=== PATIENT | female | born 1970 | race Caucasian/White ===

== ENCOUNTER 2020-02-01 10:20 | Outpatient (REF) | payer MEDICAID, SELFPAY | END 2020-02-01 10:21 | disposition home or self-care (01) | LOC: HO.LAB 10:20 | PROVIDERS: Visit Provider Internal Medicine | DX: Z20.828 Contact with and (suspected) exposure to other viral communicable diseases (principal) | CPT/HCPCS: C9803; U0003 ==

== ENCOUNTER 2020-02-13 15:25 | Outpatient (REF) | payer MEDICAID, SELFPAY | END 2020-02-13 15:26 | disposition home or self-care (01) | LOC: HO.LAB 15:25 | PROVIDERS: PCP Internal Medicine; Visit Provider Internal Medicine | DX: Z20.828 Contact with and (suspected) exposure to other viral communicable diseases (principal) | CPT/HCPCS: C9803; U0003 ==

== ENCOUNTER 2020-10-25 13:22 | Outpatient (REF) | payer MEDICAID, SELFPAY ==
[2020-10-25 14:49] LABS: COVID-19 Test Negative (Negative); IDNOW Serial# 08D9AD1C
== END 2020-10-25 13:23 | disposition home or self-care (01) ==
LOC: HO.LAB 13:22
PROVIDERS: PCP Internal Medicine; Visit Provider Internal Medicine
DX: Z20.822 Contact with and (suspected) exposure to COVID-19 (principal)
CPT/HCPCS: 36415; 87635; C9803

== ENCOUNTER 2021-03-05 10:22 | Outpatient (REF) | payer MEDICAID, SELFPAY | END 2021-03-05 10:23 | disposition home or self-care (01) | LOC: HO.HMGCLDS 10:22 | PROVIDERS: Visit Provider Internal Medicine | DX: Z20.822 Contact with and (suspected) exposure to COVID-19 (principal) | CPT/HCPCS: C9803; U0003; U0005 ==

== ENCOUNTER 2021-11-01 11:08 | Emergency (ER) | payer OTHER, MEDICAID, SELFPAY ==
[2021-11-01 11:18] VITALS: BP 146/72; PULSE 67; RESP 18; TEMP 35.9; O2SAT 98; BMI 40.7
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
[2021-11-01] MEDS: Acetaminophen 325 MG TABLET 975 MG PO (13:59)
== END 2021-11-01 14:16 | disposition home or self-care (01) ==
PROVIDERS: Emergency Provider Emergency Medicine; PCP Internal Medicine
DX: R51.9 Headache, unspecified (principal); M54.2 Cervicalgia; R42 Dizziness and giddiness
CPT/HCPCS: 99283

== ENCOUNTER 2022-01-28 19:10 | Emergency (ER) | payer MEDICAID, SELFPAY ==
[2022-01-28 19:50] VITALS: BP 148/82; PULSE 103; RESP 16; TEMP 37; O2SAT 96; BMI 40.4
--- NOTE | 2022-01-28 19:59 | ED.URI ---
HPI - URI/Sore Throat General Chief Complaint: Upper Respiratory Symptoms Stated Complaint: Abnormal labs Source: patient Mode of arrival: ambulatory History of Present Illness HPI Narrative: 51-year-old female without significant past medical history presents with complaints of sore throat, fever, chills, nausea as well as several episodes of nonbloody diarrhea since Thursday. She did go and see her primary care provider which did lab work, chest x-ray as well as viral testing and patient was noted be flu positive. Patient has taken Lomotil today to help slow down her diarrhea, however her primary care provider instructed her to be evaluated at the emergency room. She denies any vomiting and is able to keep both water and solids down. Related Data Previous Rx's Medication Instructions Recorded acetaminophen 500 mg tablet 1,000 mg PO QID PRN pain #30 tabs 11/01/21 Allergies Allergy/AdvReac Type Severity Reaction Status Date / Time latex [LATEX] Allergy Intermediate RASH Verified 01/28/22 19:54 Review of Systems Review of Systems: Pertinent positives and negatives as stated in HPI 10 point review of systems is otherwise negative. PMFSH Past Medical History Source: nursing notes reviewed Physical Exam Vital Signs: Vital Signs: Last Vital Signs Temp 98.6 F 01/28/22 19:50 Pulse 103 H 01/28/22 19:50 Resp 16 01/28/22 19:50 BP 148/82 H 01/28/22 19:50 Pulse Ox 96 01/28/22 19:50 O2 Del Method 01/28/22 19:50 BMI result Body Mass Index 40.4 VITAL SIGNS: Reviewed. GENERAL: Well developed, well nourished, in no acute distress. HEAD: Normocephalic/atraumatic EYES: PERRLA, EOMI EARS: Ext canals without abnormality, TMs non-bulging and non-erythematous NOSE: Nares patent bilateral OROPHARYNX: no oral lesions noted, posterior pharynx clear and erythematous without noted tonsillar enlargement/erythema/exudates NECK: Supple, no adenopathy LUNGS: Normal breath sounds. No adventitious sounds or accessory muscle use. SpO2<96> CARDIOVASCULAR: Regular rate and rhythm without noted murmurs ABDOMEN: Soft, non-tender, non-distended with bowel sounds. MUSCULOSKELETAL: No tenderness, deformities, or effusions noted on gross inspection. EXTREMITIES: No cyanosis, clubbing or edema. SKIN: Inspection of the skin reveals no rashes NEUROLOGIC: Alert and oriented x 4. Strength and sensation to light touch were grossly intact x 4. Course Course Course Narrative: 51-year-old female with history and clinical presentation consistent with viral syndrome and is known to have influenza positive. Patient is otherwise hemodynamically stable and will benefit from being discharged back to home and understands that her goals are to adjust her diet to firm up her stools and use [id number] medications if necessary such as Lomotil. In addition, patient knows that she should be take Tylenol/ibuprofen as needed for body aches and remaining symptoms. Discharge Plan Discharge Clinical Impression: Viral syndrome, Influenza Patient Disposition: Home, Self-Care Instructions: Viral Syndrome (ED), Influenza (ED), Nutrition Tips for Relief of Diarrhea (ED) Additional Instructions: 1. Recommend increasing water intake and please review the dietary recommendations for resolving diarrhea. 2. Recommend [id number] Tylenol/ibuprofen as needed for body aches, temperatures greater than 100.4. Return to the ER for worsening symptoms. Prescriptions: No Action acetaminophen 500 mg tablet 1,000 mg PO QID PRN (Reason: pain) Qty: 30 0RF Referrals: Sheridan Hernandez MD [Primary Care Provider] - Stand Alone Forms: Work/School Release
== END 2022-01-28 20:46 | disposition home or self-care (01) ==
PROVIDERS: Emergency Provider Student in an Organized Health Care Education/Training Program; PCP Internal Medicine
DX: J10.1 Influenza due to other identified influenza virus with other respiratory manifestations (principal); B34.9 Viral infection, unspecified; R50.9 Fever, unspecified
CPT/HCPCS: 99282; 99283

== ENCOUNTER 2022-02-03 12:54 | Emergency (ER) | payer MEDICAID, SELFPAY ==
--- NOTE | ~2022-02-03 | XR_ITS ---
EXAMINATION: XR CHEST CLINICAL INFORMATION: Cough for one week COMPARISON: Previous chest x-ray most recent from 2018 TECHNIQUE: 2 views of the chest were obtained. FINDINGS: No significant abnormality is noted involving the heart, lungs, mediastinum, bony thorax or soft tissues. XR/XR chest 2V IMPRESSION: Unremarkable examination.
[2022-02-03 13:11] VITALS: BP 154/71; PULSE 74; RESP 18; TEMP 36.2; O2SAT 98; BMI 40.4
--- NOTE | 2022-02-03 13:18 | ED.GENADULT ---
HPI - General Adult General Chief complaint: General Medical <Sabrina Burnett MD - Last Filed: 02/03/22 13:22> Stated complaint: sob <Sabrina Burnett MD - Last Filed: 02/03/22 13:22> Time Seen by Provider: 02/03/22 15:09 <Sabrina Burnett MD - Last Filed: 02/03/22 13:22> Source: patient <CECILIA Woods - Last Filed: 02/03/22 18:36> Mode of arrival: ambulatory <CECILIA Woods - Last Filed: 02/03/22 18:36> History of Present Illness HPI narrative: 51-year-old female w/PMHx Influenza A on 01/28 presenting to ED sent in by PCP for dehydration noted on outpatient labs. Patient was seen in the ED on 01/28 in discharged with symptomatic treatment, without improvement. Reports continued dry cough, chest discomfort with cough, mild SOB, sore throat, fatigue and diarrhea since influenza diagnosis. Reports p.o. intake WNL. Denies ear pain, difficulty swallowing, abdominal pain, nausea, vomiting <CECILIA Woods - Last Filed: 02/03/22 18:36> Onset (ago): day(s) <CECILIA Woods - Last Filed: 02/03/22 18:36> Related Data Home medications: Previous Rx's Medication Instructions Recorded acetaminophen 500 mg tablet 1,000 mg PO QID PRN pain #30 tabs 11/01/21 azithromycin 250 mg tablet See Rx Instructions PO .COMPLEX #6 02/03/22 tabs benzonatate 100 mg capsule 100 mg PO TID PRN cough #14 caps 02/03/22 fluticasone propionate 50 2 spray intranasal DAILY #16 grams 02/03/22 mcg/actuation nasal spray,suspension (Flonase Allergy Relief) <Sabrina Burnett MD - Last Filed: 02/03/22 13:22> Allergies/adverse reactions: Allergies Allergy/AdvReac Type Severity Reaction Status Date / Time latex [LATEX] Allergy Intermediate RASH Verified 02/03/22 13:18 <Sabrina Burnett MD - Last Filed: 02/03/22 13:22> Review of Systems Review of Systems: Constitutional: No Fever, + Chills ENT/Mouth: No Ear Pain, No Nasal Congestion, No Sinus Pain, No Hoarseness, + sore throat, + Rhinorrhea, No Swallowing Difficulty Cardiovascular: + Chest Pain when coughing, + SOB Respiratory: + Cough, No Sputum, No Wheezing Gastrointestinal: No Nausea, No Vomiting, No Diarrhea, No Constipation, No Abdominal pain Genitourinary: No Dysuria, No Urinary Frequency, No Hematuria, No Urgency, No Flank Pain Musculoskeletal: No joint pain, No Myalgias, No Joint Swelling Skin: No Skin Lesions, No rash Neuro: No Weakness, No Numbness, No Paresthesias <CECILIA Woods - Last Filed: 02/03/22 18:36> Yes all other systems are reviewed and are negative <CECILIA Woods - Last Filed: 02/03/22 18:36> Constitutional: Constitutional: Reports as per HPI <CECILIA Woods - Last Filed: 02/03/22 18:36> [facility] Past Medical History Attestation statement: The following information was validated with the patient. <CECILIA oWods - Last Filed: 02/03/22 18:36> Social History Social History: Social History Smoked in Last 30 Days: No Use of substances other than those prescribed or required for medical reasons: No Advance Directives: No Advance Directives Information Provided: Yes <Sabrina Burnett MD - Last Filed: 02/03/22 13:22> Physical Exam ED Vital Signs: Vital Signs - 24 hr 02/03/22 13:11 02/03/22 14:49 02/03/22 16:40 Temperature 97.1 F 98.5 F 98.1 F Pulse Rate 74 64 88 Respiratory Rate 18 12 18 Blood Pressure 154/71 H 115/60 131/62 Pulse Oximetry 98 96 96 Oxygen Delivery Method Room Air Room Air Room Air BMI result Body Mass Index 40.4 <Sabrina Burnett MD - Last Filed: 02/03/22 13:22> Vital Signs - 24 hr 02/03/22 13:11 02/03/22 14:49 02/03/22 16:40 Temperature 97.1 F 98.5 F 98.1 F Pulse Rate 74 64 88 Respiratory Rate 18 12 18 Blood Pressure 154/71 H 115/60 131/62 Pulse Oximetry 98 96 96 Oxygen Delivery Method Room Air Room Air Room Air BMI result Body Mass Index 40.4 <CECILIA Woods Last Filed: 02/03/22 18:36> Const General: cooperative, healthy appearing and no acute distress <CECILIA Woods Last Filed: 02/03/22 18:36> Orientation/consciousness: patient oriented x3 <CECILIA Woods Last Filed: 02/03/22 18:36> Limitations: no limitations <CECILIA Woods - Last Filed: 02/03/22 18:36> HENMT Head: Yes normal to inspection and Yes atraumatic <CECILIA Woods Last Filed: 02/03/22 18:36> Ears: hearing grossly normal bilaterally, external ears normal and TM's normal bilaterally <CECILIA Woods Last Filed: 02/03/22 18:36> General nose exam: Normal external nose present <CECILIA Woods Last Filed: 02/03/22 18:36> Face and sinus: Yes normal facial exam <CECILIA Woods Last Filed: 02/03/22 18:36> Throat: Yes posterior oropharynx normal, Yes tonsils normal, Yes uvula midline, No uvula laterally displaced and No uvular edema <CECILIA Woods Last Filed: 02/03/22 18:36> Eyes General: appearance normal, both eyes and all related structures <CECILIA Woods Last Filed: 02/03/22 18:36> EOM: EOMs intact bilaterally <CECILIA Woods - Last Filed: 02/03/22 18:36> Neck Neck: Yes normal visual inspection and Yes no meningeal signs <CECILIA Woods Last Filed: 02/03/22 18:36> Resp Effort & Inspection: normal respiratory effort, no respiratory distress and no stridor <CECILIA Woods Last Filed: 02/03/22 18:36> Auscultation: clear to auscultation bilaterally, no crackles, no rales, no rhonchi and no wheezes <CECILIA Woods - Last Filed: 02/03/22 18:36> Cardio Rate: regular rate <CECILIA Woods - Last Filed: 02/03/22 18:36> Heart sounds: S1 normal heart sound present and S2 normal heart sound present <CECILIA Woods - Last Filed: 02/03/22 18:36> GI Inspection: Yes normal to inspection <CECILIA Woods - Last Filed: 02/03/22 18:36> Palpation (GI): Soft to palpation, nontender, no guarding and not rigid <Fadumo Nieves PA - Last Filed: 02/03/22 18:36> Skin Rashes: no rashes <CECILIA Woods - Last Filed: 02/03/22 18:36> Wounds: no wounds <CECILIA Woods - Last Filed: 02/03/22 18:36> Neuro General: patient oriented x3, tone normal and no meningeal signs <CECILIA Woods - Last Filed: 02/03/22 18:36> Gait exam (Neuro): Normal gait present <CECILIA Woods - Last Filed: 02/03/22 18:36> Extrem General: Yes normal to inspection, Yes no pedal edema and Yes no calf tenderness <CECILIA Woods - Last Filed: 02/03/22 18:36> Course Course Course Narrative: 51F p/w persistent cough and feeling under the weather and improvement in hydration and no more diarrhea. VS reviewed. GEN: NAD HEENT: NC/AT, EOMI/PERRLA, ears wnl, throat wnl PULM: CTAB, no wheeze, rhonchi, rales CVS: RRR, no murmurs ABD: NT/ND - CXR, COVID/Flu <Sabrina Burnett MD - Last Filed: 02/03/22 13:22> 51F p/w persistent cough and feeling under the weather and improvement in hydration and no more diarrhea. VS reviewed. GEN: NAD HEENT: NC/AT, EOMI/PERRLA, ears wnl, throat wnl PULM: CTAB, no wheeze, rhonchi, rales CVS: RRR, no murmurs ABD: NT/ND - CXR, COVID/Flu -1657--no leukocytosis. Mild elevation in AST/ALT. Troponin wnl. -COVID-19/influenza negative -1809--UA negative. Results discussed with patient including worrisome signs and symptoms and strict return precautions, and when to return to the emergency department. They verbalized understanding and feel safe for discharge at this time. <CECILIA Woods - Last Filed: 02/03/22 18:36> Medications Administered Discontinued Medications Generic Name Dose Route Start Last Admin Trade Name Freq PRN Reason Stop Dose Admin Sodium Chloride 1,000 mls @ 999 mls/hr 02/03/22 15:30 02/03/22 15:55 Ns IV 02/03/22 16:30 999 mls/hr .Q1H1M MARIANO Administration <Sabrina Burnett MD - Last Filed: 02/03/22 13:22> Medications Administered Discontinued Medications Generic Name Dose Route Start Last Admin Trade Name Freq PRN Reason Stop Dose Admin Sodium Chloride 1,000 mls @ 999 mls/hr 02/03/22 15:30 02/03/22 15:55 Ns IV 02/03/22 16:30 999 mls/hr .Q1H1M MARAINO Administration <CECILIA Woods - Last Filed: 02/03/22 18:36> Medical Decision Making Medical Decision Making MDM Narrative: 51-year-old female w/PMHx Influenza A on 01/28 presenting to ED sent in by PCP for dehydration noted on outpatient labs. Patient was seen in the ED on 01/28 in discharged with symptomatic treatment, without improvement. On exam VSS, NAD, nontoxic appearing, lungs CTA, abdomen soft/nontender, exam otherwise nonfocal. Concern for bronchitis vs pneumonia vs continued viral syndrome. Lower suspicion for ACS/PE. Rule out dehydration/metabolic abnormalities Plan: EKG, COVID-19/influenza testing, CXR, labs, UA, IVF <CECILIA Woods - Last Filed: 02/03/22 18:36> Differential Diagnoses: Differential diagnosis Differential Diagnosis: The differential diagnosis associated with the patient?s presentation includes: <CECILIA Woods - Last Filed: 02/03/22 18:36> Independent interpretation of EKG, rhythm strip, radiology study: Independent interp EKG,rhythm strip, radiology study I performed an independent interpretation of the: EKG and Plain X-Ray My interpretation is normal sinus rhythm at a rate of 61. Incomplete right bundle branch block. QTC 442. No STEMI. <CECILIA Woods - Last Filed: 02/03/22 18:36> Discussion of test interpretation with radiology: Discussion of test interpretation with radiology Discussed with radiology regarding test interpretation. <CECILIA Woods Last Filed: 02/03/22 18:36> Independent historian (e.g., spouse, EMS, friend): Independent historian (e.g., spouse, EMS, friend) <CECILIA Woods Last Filed: 02/03/22 18:36> Non-ED record review: Review of External (Non-ED) Record <CECILIA Woods Last Filed: 02/03/22 18:36> Prescription medication was considered but ultimately not given after discussion with patient/family. (e.g., pain medication, antiviral, antibiotic): Prescriptions considered but not given <CECILIA Woods Last Filed: 02/03/22 18:36> Chronic conditions affecting care (e.g., diabetes, HTN): Chronic conditions affecting care (e.g., diabetes, HTN) <CECILIA Woods Last Filed: 02/03/22 18:36> Care significantly affected by Social Determinants of Health (e.g., housing and economic circumstances, unemployment): Care affected by Social Determinants of Health <CECILIA Woods - Last Filed: 02/03/22 18:36> Discharge Plan Discharge Clinical Impression: Bronchitis <Sabrina Burnett MD - Last Filed: 02/03/22 13:22> Patient Disposition: Home, Self-Care <Sabrina Burnett MD - Last Filed: 02/03/22 13:22> Instructions: Acute Bronchitis (ED) <Sabrina Burnett MD - Last Filed: 02/03/22 13:22> Additional Instructions: Your blood work and chest x-ray were unremarkable today in the emergency department. You tested negative for COVID-19 and the flu. Zithromax is an antibiotic please take as prescribed. Tessalon Perles for cough. Flonase is a nasal decongestion. In addition take Tylenol /Motrin as needed. Increase fluid intake. Have close follow-up with her doctor. If symptoms persist or worsen return to the emergency department <Sabrina Burnett MD - Last Filed: 02/03/22 13:22> Prescriptions: New azithromycin 250 mg tablet See Rx Instructions .ROUTE .COMPLEX Qty: 6 0RF Rx Instructions: take 500 mg today (day 1), then 250 mg for 4 days (days 2-5) benzonatate 100 mg capsule 100 mg PO TID PRN (Reason: cough) Qty: 14 0RF fluticasone propionate [Flonase Allergy Relief] 50 mcg/actuation spray,suspension 2 spray intranasal DAILY Qty: 16 0RF Rx Instructions: administer into each nostril No Action acetaminophen 500 mg tablet 1,000 mg PO QID PRN (Reason: pain) Qty: 30 0RF <Sabrina Burnett MD - Last Filed: 02/03/22 13:22> Referrals: Sheridan Hernandez MD [Primary Care Provider] - 3 days <Sabrina Burnett MD - Last Filed: 02/03/22 13:22> Stand Alone Forms: Work/School Release <Sabrina Burnett MD - Last Filed: 02/03/22 13:22>
[2022-02-03 14:09] LABS: COVID-19 Test Negative (Negative); IDNOW Serial# 55D5AD1C
[2022-02-03 14:16] LABS: IDNOW Serial# 9DB6401D; Influenza A Negative (Negative); Influenza B2 Negative (Negative)
[2022-02-03 14:49] VITALS: BP 115/60; PULSE 64; RESP 12; TEMP 36.9; O2SAT 96
--- NOTE | 2022-02-03 15:24 | ECG_ITS ---
Test Reason : SOB Blood Pressure : / mmHG Vent. Rate : 061 BPM Atrial Rate : 061 BPM P-R Int : 144 ms QRS Dur : 100 ms QT Int : 440 ms P-R-T Axes : 058 -16 039 degrees QTc Int : 442 ms Normal sinus rhythm Incomplete right bundle branch block Nonspecific ST and T wave abnormality Abnormal ECG When compared with ECG of 16-SEP-2017 10:28, Left anterior fascicular block is no longer Present Referred By: Fadumo Nieves Electronically Signed By:VIRA PORTER MD
[2022-02-03 15:53] LABS: MANUAL DIFF FLAG NO
[2022-02-03 15:54] LABS: Basophils Percent Auto 0.6 % (0-2); Eosinophils Absolute Auto 0.2 X10*3/uL (0.0-0.4); Hematocrit 44.2 % (37.0-47.0); Hemoglobin 14.6 g/dl (12.0-16.0); Imm Gran Abs Auto 0.03 X10*3/uL (0.00-0.03); Imm Gran Pct Auto 0.4 % (0.0-0.4); Lymphocytes Absolute Auto 2.8 X10*3/uL (1.2-4.9); Mean Corpuscular Hemoglobin 29.4 pg (27.0-33.0); Mean Corpuscular Volume 88.9 fL (80.0-98.0); Mean Platelet Volume 8.8 fL (9.4-12.3); Monocytes Absolute Auto 0.6 X10*3/uL (0.1-1.2); Monocytes Percent Auto 8.6 % (2-11); Neutrophils Absolute Auto 3.4 x10*3/uL (2.0-8.3); Neutrophils Percent Auto 47.4 % (45-73); Platelet Count 317 X10*3/uL (160-400); Red Blood Count 4.97 X10*6/uL (4.20-5.50); Red Cell Distribution Width 12.5 % (11.0-16.0); White Blood Count 7.1 X10*3/uL (4.8-10.8)
[2022-02-03] MEDS: 0.9 % Sodium Chloride 1,000 ML 999 ML IV (15:55)
[2022-02-03 16:17] LABS: Alanine Aminotransferase 62 U/L (0-31); Albumin Level 4.1 g/dL (3.5-5.0); Alkaline Phosphatase 62 U/L (39-117); Anion Gap 14 (12-20); Aspartate Amino Transferase 37 U/L (5-31); Bilirubin Direct < 0.2 mg/dL (0.0-0.5); Bilirubin Total 0.3 mg/dL (0.0-1.0); Blood Urea Nitrogen 13 mg/dL (9-16); Calcium 9.2 mg/dL (8.4-10.2); Carbon Dioxide 27 mmol/L (22-29); Chloride 106 mmol/L (96-108); Creatinine Clr Calc Pharmacy 99.5; Estimated Glomerular Filt Rate > 60; Glucose Random 103 mg/dL (60-115); Magnesium 2.1 mg/dL (1.6-2.6); Potassium 4.1 mmol/L (3.3-5.1); Sodium 143 mmol/L (135-145); Total Protein 7.1 g/dL (6.5-8.0)
[2022-02-03 16:27] LABS: Troponin-I High Sensitivity < 3.5 ng/L (<3.5-17.0)
[2022-02-03 16:40] VITALS: BP 131/62; PULSE 88; RESP 18; TEMP 36.7; O2SAT 96
[2022-02-03 17:45] LABS: Appearance Urine Clear; Color Urine Yellow; Glucose Urine UA Negative (Negative); Leukocyte Esterase Urine Negative (Negative); Nitrite Urine Negative (Negative); PH 5.5 (5.0-9.0); Urine Blood Negative (Negative); Urine Ketones Negative (Negative); Urine Protein Negative (Neg-Trace)
== END 2022-02-03 19:07 | disposition home or self-care (01) ==
PROVIDERS: Physician Assistant; Student in an Organized Health Care Education/Training Program; Emergency Provider Emergency Medicine; PCP Internal Medicine
DX: J20.8 Acute bronchitis due to other specified organisms (principal); R06.02 Shortness of breath; E86.0 Dehydration; Z20.822 Contact with and (suspected) exposure to COVID-19; Z79.899 Other long term (current) drug therapy
CPT/HCPCS: 36415; 71046; 80048; 80076; 81003; 83735; 84484; 85025; 87502; 87635; 93005; 99283; 99284

== ENCOUNTER 2023-03-21 19:24 | Emergency (ER) | payer OTHER, MEDICAID, SELFPAY ==
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
[2023-03-21 19:39] VITALS: BP 118/64; PULSE 82; PULSE 84; RESP 14; TEMP 36.4; O2SAT 98; BMI 42.6
[2023-03-21 19:48] VITALS: BP 118/64; PULSE 82; RESP 20; TEMP 36.4; O2SAT 98
[2023-03-21 19:52] VITALS: BP 146/59; PULSE 76; RESP 16; TEMP 36.6; O2SAT 97
[2023-03-21 19:53] LABS: MANUAL DIFF FLAG NO
[2023-03-21 19:54] LABS: Basophils Absolute Auto 0.1 X10*3/uL (0.0-0.2); Basophils Percent Auto 0.6 % (0-2); Eosinophils Absolute Auto 0.3 X10*3/uL (0.0-0.4); Eosinophils Percent Auto 3.2 % (0-4); Hematocrit 42.3 % (37.0-47.0); Hemoglobin 14.6 g/dl (12.0-16.0); Imm Gran Abs Auto 0.01 X10*3/uL (0.00-0.03); Imm Gran Pct Auto 0.1 % (0.0-0.4); Lymphocytes Percent Auto 37.6 % (20-40); Mean Corpuscular HGB Conc 34.5 g/dl (31.0-35.0); Mean Corpuscular Hemoglobin 29.6 pg (27.0-33.0); Mean Corpuscular Volume 85.8 fL (80.0-98.0); Mean Platelet Volume 8.9 fL (9.4-12.3); Monocytes Absolute Auto 0.8 X10*3/uL (0.1-1.2); Monocytes Percent Auto 10.1 % (2-11); Neutrophils Absolute Auto 3.8 x10*3/uL (2.0-8.3); Neutrophils Percent Auto 48.4 % (45-73); Platelet Count 272 X10*3/uL (160-400); Red Blood Count 4.93 X10*6/uL (4.20-5.50); Red Cell Distribution Width 12.6 % (11.0-16.0); White Blood Count 7.8 X10*3/uL (4.8-10.8)
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
[2023-03-21 20:06] LABS: Ethanol < 10 mg/dL
[2023-03-21 20:08] LABS: Alanine Aminotransferase 21 U/L (0-31); Alkaline Phosphatase 63 U/L (39-117); Anion Gap 11 (12-20); Aspartate Amino Transferase 16 U/L (5-31); Bilirubin Direct 0.1 mg/dL (0.0-0.5); Bilirubin Total 0.3 mg/dL (0.0-1.0); Blood Urea Nitrogen 18 mg/dL (9-16); Calcium 9.7 mg/dL (8.4-10.2); Carbon Dioxide 22 mmol/L (22-29); Chloride 110 mmol/L (96-108); Creatinine Clr Calc Pharmacy 95.2; Estimated Glomerular Filt Rate > 60; Glucose Random 108 mg/dL (60-115); Lipase 32 U/L (8-78); Potassium 3.8 mmol/L (3.3-5.1); Sodium 139 mmol/L (135-145); Total Protein 7.3 g/dL (6.5-8.0)
[2023-03-21 21:45] VITALS: BP 146/59; PULSE 70; RESP 16; TEMP 36.6; O2SAT 98
[2023-03-21 22:05] LABS: Amphetamine Screen Urine Not Detected (Not Detect); Barbiturates, Urine Not Detected (Not Detect); Benzodiazepines Screen Urine Not Detected (Not Detect); Cannabinoid Screen Urine Not Detected (Not Detect); Cocaine Screen Urine Not Detected (Not Detect); Fentanyl, urine Not Detected (Not Detect); Opiate Screen Urine Not Detected (Not Detect); Phencyclidine Screen Urine Not Detected (Not Detect)
[2023-03-21] MEDS: Acetaminophen 325 MG TABLET 975 MG PO (22:13)
== END 2023-03-21 22:17 | disposition home or self-care (01) ==
PROVIDERS: Emergency Provider Emergency Medicine Emergency Medical Services; PCP Internal Medicine
DX: S06.0X0A Concussion without loss of consciousness, initial encounter (principal); S39.012A Strain of muscle, fascia and tendon of lower back, initial encounter; S29.012A Strain of muscle and tendon of back wall of thorax, initial encounter; V43.52XA Car driver injured in collision with other type car in traffic accident, initial encounter; Y93.89 Activity, other specified; Y92.414 Local residential or business street as the place of occurrence of the external cause; Y99.9 Unspecified external cause status; Z79.899 Other long term (current) drug therapy
CPT/HCPCS: 36415; 70450; 71250; 72125; 74176; 80048; 80076; 80307; 83690; 85025; 93005; 99284; 99285

== ENCOUNTER → 2023-03-21 19:31 | Outpatient (BNV) | payer MEDICAID, SELFPAY | PROVIDERS: Emergency Provider Emergency Medicine Emergency Medical Services; PCP Internal Medicine; Visit Provider Internal Medicine | DX: R07.9 Chest pain, unspecified (principal) | CPT/HCPCS: 93010 ==